=== PATIENT | male | born 1975 | race Caucasian/White ===

== ENCOUNTER → 2019-06-09 11:45 | Outpatient (CLI) | payer OTHER, SELFPAY ==
--- NOTE | ~2019-06-09 | XR_ITS ---
XR knee RT 3V 06/09/2019 12:00 INDICATION: Right knee pain PROCEDURE: 4 views right knee COMPARISON: No prior studies for comparison. FINDINGS: Fracture, dislocation or subluxation is not identified. No significant joint effusion. The soft tissues appear within normal limits. No foreign bodies are identified. IMPRESSION: 1: NO ACUTE BONE OR JOINT ABNORMALITY IDENTIFIED. Reviewed, dictated and finalized at location A. ICAL SUPERVISOR
== END ==
PROVIDERS: PCP Family Medicine; Visit Provider Family Medicine
DX: M25.561 Pain in right knee (principal)
CPT/HCPCS: 73562

== ENCOUNTER 2019-08-21 06:31 | Outpatient (CLI) | payer OTHER, SELFPAY ==
--- NOTE | ~2019-08-21 | MR_ITS ---
EXAMINATION: MR ankle RT wo con DATE: 08/21/2019 07:51 INDICATION: Right Achilles tendinitis with heel pain. TECHNIQUE: Magnetic resonance imaging (MRI) of the right ankle was performed without intravenous cont rast. Sequences included sagittal, coronal, and axial proton-density weighted fast spin echo without and with fat saturation. COMPARISON: None. FINDINGS: Evaluation mildly limited by motion blurring on multiple sequences despite repetition. Medial ankle ligaments: Deep and superficial deltoid ligaments as well as the spring ligament are normal. Lateral ankle ligaments: The anterior and posterior inferior tibiofibular ligaments are normal. The anterior talofibular, calc aneofibular and posterior talofibular ligaments are normal. Tendons: Achilles tendon is normal. Mild tendinopathy and longitudinal split tearing of the peroneus longus an d brevis tendons. The tibialis anterior and extensor hallucis longus and extensor digitorum longus te ndons are normal. The tibialis posterior, flexor digitorum longus and flexor hallucis longus tendons are normal. Plantar fascia: Thickening and increased signal at the proximal aspect of the medial compartment of the plantar apone urosis likely representing scarring at the site of a prior fascial release with additional scarring i n the more superficial plantar fat pad. No significant surrounding soft tissue edema to suggest acute plantar fasciitis. Bones/other: Bone alignment is normal. Normal marrow signal. No fracture or pathologic marrow replacing process. M ild osteoarthritis at a few of the tarsal metatarsal joints. Fluid: Physiologic amount of fluid in the joint spaces. No tenosynovitis, bursitis or other abnormal fluid c ollections. IMPRESSION: 1. Postoperative change of prior fascial release of the medial compartment of the plantar aponeurosis . 2. Mild tendinopathy and longitudinal split tearing of the peroneus longus and brevis tendons. Achill es tendon is normal. Reviewed, dictated and finalized at location A. IMPRESSION: 1. Postoperative change of prior fascial release of the medial compartment of t he plantar aponeurosis. 2. Mild tendinopathy and longitudinal split tearing of the peroneus longus and brevis tendons. Achilles tendon is normal.
== END 2019-08-21 06:32 | disposition home or self-care (01) ==
PROVIDERS: PCP Family Medicine; Visit Provider Podiatrist Foot & Ankle Surgery
DX: M76.61 Achilles tendinitis, right leg (principal)
CPT/HCPCS: 73721

== ENCOUNTER 2019-08-27 09:14 | Outpatient (CLI) | payer OTHER, SELFPAY ==
--- NOTE | 2019-08-27 11:00 | NEURO_ITS ---
Patient Number: [id number] Impression: # Complains of feet pain and numbness around the heel. # Normal nerve conduction study, with left posterior tibial nerve response less compared to the right. # Normal bilateral needle/EMG exam. # Clinical correlation recommended. Nerve Conduction Studies Anti Sensory Summary Table Stim Site NR Peak (ms) P-T Amp (?V) Site1 Site2 Delta-P (ms) Dist (cm) Mark (m/s) Left Sup Fibular Anti Sensory (Ant Lat Mall) 14 cm 3.2 7.6 14 cm Ant Lat Mall 3.2 16.0 50 Right Sup Fibular Anti Sensory (Ant Lat Mall) 14 cm 3.1 18.2 14 cm Ant Lat Mall 3.1 16.0 52 Left Sural Anti Sensory (Lat Mall) Calf 3.8 9.8 Calf Lat Mall 3.8 16.0 42 Right Sural Anti Sensory (Lat Mall) Calf 3.5 12.1 Calf Lat Mall 3.5 16.0 46 Motor Summary Table Stim Site NR Onset (ms) O-P Amp (mV) Site1 Site2 Delta-0 (ms) Dist (cm) Mark (m/s) Left Peroneal Motor (Vastus Med) Ankle 4.6 2.7 Popit Ankle 8.0 40.0 50 Popit 12.6 2.0 Right Peroneal Motor (Vastus Med) Ankle 4.5 2.8 Popit Ankle 7.5 39.0 52 Popit 12.0 2.7 Left Tibial Motor (Abd Atkinson Brev) Ankle 4.3 0.6 Knee Ankle 8.7 41.0 47 Knee 13.0 0.3 Right Tibial Motor (Abd Atkinson Brev) Ankle 4.8 2.0 Knee Ankle 9.0 43.0 48 Knee 13.8 1.6 F Wave Studies NR F-Lat (ms) L-R F-Lat (ms) Left Peroneal (Mrkrs) (EDB) 49.92 0.97 Right Peroneal (Mrkrs) (EDB) 48.94 0.97 Left Tibial (Mrkrs) (Abd Hallucis) 49.77 0.00 Right Tibial (Mrkrs) (Abd Hallucis) 49.77 0.00 EMG Side Muscle Nerve Root Ins Act Fibs Amp Dur Recrt Comment Right AntTibialis Dp Br Fibular L4-5 Nml Nml Nml Nml Nml Right Gastroc Tibial S1-2 Nml Nml Nml Nml Nml Right Fibularis Long Sup Br Fibular L5-S1 Nml Nml Nml Nml Nml Right Flex Dig Long Tibial L5-S2 Nml Nml Nml Nml Nml Right Ext Dig Brev Dp Br Fibular L5, S1 Nml Nml Nml Nml Nml Left AntTibialis Dp Br Fibular L4-5 Nml Nml Nml Nml Nml Left Gastroc Tibial S1-2 Nml Nml Nml Nml Nml Left Fibularis Long Sup Br Fibular L5-S1 Nml Nml Nml Nml Nml Left Flex Dig Long Tibial L5-S2 Nml Nml Nml Nml Nml Left Ext Dig Brev Dp Br Fibular L5, S1 Nml Nml Nml Nml Nml MTDD
== END 2019-08-27 09:15 | disposition home or self-care (01) ==
PROVIDERS: PCP Family Medicine; Visit Provider Podiatrist Foot & Ankle Surgery
DX: G57.53 Tarsal tunnel syndrome, bilateral lower limbs (principal)
CPT/HCPCS: 95886; 95910

== ENCOUNTER 2019-09-06 12:25 | Outpatient (CLI) | payer OTHER, SELFPAY ==
--- NOTE | ~2019-09-06 | XR_ITS ---
EXAMINATION:XR_CERV2-3V_CR DATE: 09/06/2019 12:40 INDICATION: Right-sided neck pain TECHNIQUE: AP, lateral, lateral swimmers and odontoid views of the cervical spine are provided. COMPARISON: 06/04/2017 FINDINGS: There is straightening of the normal cervical lordosis. The odontoid is intact. No fracture is identified. Vertebral body heights and disk spaces are normal. There is mild uncovertebral joint osteoarthritis at C5-6. Prevertebral soft tissues are normal. IMPRESSION: 1. Mild cervical spondylosis without acute findings or significant interval change. Reviewed, dictated and finalized at location B. IMPRESSION: 1. Mild cervical spondylosis without acute findings or significant interval [facility].
--- NOTE | ~2019-09-06 | CT_ITS ---
EXAMINATION: CT brain wo con DATE: 09/06/2019 13:13 INDICATION: Headache. TECHNIQUE: Computed tomography (CT) of the head was performed without intravenous contrast. The mA wa s adjusted according to patient size. Iterative reconstruction technique was employed. The dose-lengt h product was 681.00 mGy-cm. COMPARISON: None FINDINGS: There is a small old infarct in right cerebellum. There is no intracranial hemorrhage, acut e infarction, or abnormal intracranial mass lesion. The ventricles are normal in size. There is mild mucosal thickening in the ethmoid sinuses. The orbits are normal. The mastoid air cells are normal. IMPRESSION: 1. Small old infarct in right cerebellum. Reviewed, dictated and finalized at location A.
== END 2019-09-06 12:26 | disposition home or self-care (01) ==
LOC: ANHIMG 12:26
PROVIDERS: PCP Family Medicine; Visit Provider Family Medicine
DX: M54.2 Cervicalgia (principal); R51 Headache; M47.812 Spondylosis without myelopathy or radiculopathy, cervical region; Z86.73 Personal history of transient ischemic attack (TIA), and cerebral infarction without residual deficits
CPT/HCPCS: 70450; 72040

== ENCOUNTER 2019-09-11 07:21 | Outpatient (CLI) | payer OTHER, SELFPAY ==
--- NOTE | ~2019-09-11 | MR_ITS ---
EXAMINATION: MR brain/brain stem wo con DATE: 09/11/2019 08:32 INDICATION: Headache. TECHNIQUE: Magnetic resonance imaging (MRI) of the brain and brainstem was performed without intraven ous contrast. Sequences included sagittal and axial T1-weighted FSE, axial diffusion-weighted FS EPI, axial T2*-weighted GRE, axial T2-weighted FLAIR Propeller, and axial T2-weighted Propeller. Apparent diffusion coefficient (ADC) maps were created. COMPARISON: Head CT 09/06/2019 FINDINGS: There is a small old infarct in the right cerebellum. There are percent areas of nonspecifi c increased T2-weighted signal intensity in the cerebral white matter, which is within normal limits for the patient's age. There is no intracranial hemorrhage, acute infarction, or abnormal intracrania l mass lesion. The ventricles are normal in size. There is a mucous retention cyst in left maxillary sinus. The mastoid air cells are normal. The orbits are normal. IMPRESSION: 1. Small old infarct in right cerebellum. Reviewed, dictated and finalized at location A.
--- NOTE | ~2019-09-11 | US_ITS ---
EXAMINATION: US carotid duplex BI DATE: 09/11/2019 09:51 INDICATION: Right cerebellar infarct. TECHNIQUE: Grayscale, color Doppler, and pulsed Doppler images of the cervical carotid arteries were obtained. The degree of vessel stenosis is placed in one of the following categories: normal, <50%, 5 0-69%, >=70% but less than near-occlusion, near-occlusion, or total occlusion. Note that percent sten osis relative to normal distal artery lumen diameter is indirectly measured from velocity measurement s as described by Anthony, et al. Radiology 2003; 229:340-346. COMPARISON: None. FINDINGS: RIGHT: The right common carotid artery (CCA) peak systolic velocity (PSV) is 100 cm/s. The right internal ca rotid artery (ICA) PSV is 82 cm/s. The right ICA end-diastolic velocity (EDV) is 21 cm/s. The right I CA/CCA PSV ratio is 0.8. Grayscale and color Doppler images yield an estimate of <50% diameter reduct ion from plaque in the ICA. There is antegrade flow in the right vertebral artery. LEFT: The left CCA PSV is 100 cm/s. The left ICA PSV is 71 cm/s. The left ICA EDV is 30 cm/s. The left ICA/ CCA PSV ratio is 0.7. Grayscale and color Doppler images yield an estimate of <50% diameter reduction from plaque in the ICA. There is antegrade flow in the left vertebral artery. IMPRESSION: 1. <50% stenosis in the right internal carotid artery. 2. <50% stenosis in the left internal carotid artery. Reviewed, dictated and finalized at location A.
--- NOTE | ~2019-09-11 | MR_ITS ---
EXAMINATION: MRA brain wo con DATE: 09/11/2019 08:32 INDICATION: Headache. TECHNIQUE: Magnetic resonance angiography (MRA) of the brain was performed without intravenous contra st with T1-weighted SPGR by the 3D [id number] technique. Maximum intensity projection 3D-reconstr uctions were obtained. COMPARISON: Brain MRI 09/11/2019 FINDINGS: Right vertebral artery is dominant. There is no significant stenosis of basilar artery or the posteri or cerebral arteries. There is no significant stenosis of the intracranial internal carotid arteries or anterior or middle cerebral arteries. Anterior communicating artery is normal. The posterior commu nicating arteries are normal. There is no aneurysm. There is a small old infarct in right cerebellum. IMPRESSION: 1. No aneurysm or significant intracranial arterial stenosis. 2. Small old infarct in right cerebellum. Reviewed, dictated and finalized at location A.
--- NOTE | 2019-09-11 08:37 | ECHO_ITS ---
Patient Info Name: Rayo Hill Age: 44 years : 1975 Gender: Male Ht: 68 in Wt: 185 lbs BSA: 2.03 m2 HR: 77 bpm BP: 110 / 87 mmHg Heart Rhythm: Sinus Rhythm Exam Date: 09/11/2019 8:46 AM Exam Location: [facility] Patient Status: Outpatient Admit Date: 09/11/2019 Staff Ordering Physician: Leandra Vallejo DO Inventory Planner: Zaida Leyva RDCS Attending Provider: Leandra Vallejo DO Referring Physician: Genevieve DANIEL; Exam Type: CA echo doppler color flow Study Info Indications - ATRIAL TACHYCARDIA Complete two-dimensional, color flow and Doppler transthoracic echocardiogram is performed. Summary 1. Left ventricular chamber dimension is normal. 2. Left ventricular systolic function is normal, estimated at 60-65%. 3. The left ventricular diastolic function is normal. 4. Tissue doppler is not performed. 5. Left atrial chamber dimension is mildly enlarged. 6. There is mild mitral valve regurgitation. 7. There is mild tricuspid valve regurgitation. 8. No pulmonary hypertension, estimated pulmonary arterial systolic pressure is 22 mmHg. 9. There is trace pulmonic regurgitation. Left Ventricle Tissue doppler is not performed. Left ventricular chamber dimension is normal. Left ventricular systolic function is normal, estimated at 60-65%. The left ventricular diastolic function is normal. Right Ventricle Right ventricular chamber dimension is normal. Right ventricular systolic function is normal. Left Atria Left atrial chamber dimension is mildly enlarged. Right Atria Right atrial chamber dimension is normal. Aortic Valve The aortic valve is trileaflet. There is no aortic valve stenosis. There is no aortic valve regurgitation. Pulmonic Valve There is trace pulmonic regurgitation. Mitral Valve There is no mitral valve stenosis. There is mild mitral valve regurgitation. Tricuspid Valve There is mild tricuspid valve regurgitation. No pulmonary hypertension, estimated pulmonary arterial systolic pressure is 22 mmHg. Pericardium/Pleural There is no pericardial effusion. Inferior Vena Cava Normal inferior vena cava with >50% collapse upon inspiration consistent with normal right atrial pressure, 5 mmHg. Aorta The aortic root size at the sinus of Valsalva is normal. Left Ventricular Outflow Tract Name Value Normal LVOT 2D LVOT Diameter 2.2 cm LVOT Doppler LVOT Peak Velocity 71 cm/s LVOT Peak Gradient 2 mmHg LVOT Mean Gradient 1 mmHg LVOT VTI 13 cm LVOT VTI/AV VTI Ratio 0.5 LVOT Stroke Volume 48 ml LVOT CO 9.2 l/min LVOT CI 4.6 l/min/m2 Pulmonic Valve Name Value Normal RVOT Doppler
[2019-09-11 10:29] LABS: Basophils Percent Auto 0.4 % (0.2-1.2); Eosinophils Absolute Auto 0.2 K/mm3 (0-0.3); Eosinophils Percent Auto 3.2 % (0-4.4); Hematocrit 43.8 % (42.0-52.0); Hemoglobin 14.6 g/dL (14.0-18.0); Immature Granulocyte Absolute 0.01 K/mm3 (0.00-0.031); Immature Granulocyte Percent A 0.1 % (0-0.5); Lymphocytes Absolute Auto 2.96 K/mm3 (0.9-3.2); Lymphocytes Percent Auto 41.1 % (18.3-44.2); Mean Corpuscular HGB Conc 33.3 g/dl (32-36); Mean Corpuscular Hemoglobin 28.7 pg (26-34); Mean Corpuscular Volume 86.1 fl (80-100); Mean Platelet Volume 9.9 fl (7.4-10.4); Monocytes Absolute Auto 0.7 K/mm3 (0.1-0.6); Neutrophils Absolute Auto 3.3 K/mm3 (1.3-6.7); Neutrophils Percent Auto 45.2 % (45.5-73.1); Platelet Count Result 221 k/mm3 (150-375); Red Blood Count 5.09 M/mm3 (4.6-6.20); Red Cell Distribution Width 12.8 % (11.5-14.5); White Blood Count 7.2 K/mm3 (4.5-10.0)
[2019-09-11 10:45] LABS: Alanine Aminotransferase 49 U/L (4-50); Albumin Level 4.6 g/dL (3.5-5.1); Alkaline Phosphatase 56 U/L (38-126); Aspartate Amino Transferase 40 U/L (17-59); Bilirubin,Total 0.8 mg/dL (0.2-1.3); Blood Urea Nitrogen 17 mg/dL (9-20); Calcium 9.6 mg/dL (8.4-10.2); Carbon Dioxide 34 mmol/L (22-30); Chloride 101 mmol/L (98-107); Cholesterol 191 mg/dL (0-200); Estimated Glomerular Filt Rate > 60; Glucose 102 mg/dL (75-110); HDL Direct 37 mg/dL; Potassium 4.4 mmol/L (3.4-5.0); Sodium 139 mmol/L (137-145); Triglycerides 339 mg/dL (<150)
[2019-09-11 10:56] LABS: LDL Cholesterol Direct 112 mg/dL
== END 2019-09-11 07:22 | disposition home or self-care (01) ==
PROVIDERS: PCP Family Medicine; Visit Provider Family Medicine
DX: R90.89 Other abnormal findings on diagnostic imaging of central nervous system (principal); Z86.79 Personal history of other diseases of the circulatory system; R51 Headache; Z13.0 Encounter for screening for diseases of the blood and blood-forming organs and certain disorders involving the immune mechanism; Z13.1 Encounter for screening for diabetes mellitus; Z13.220 Encounter for screening for lipoid disorders; I65.23 Occlusion and stenosis of bilateral carotid arteries; R93.0 Abnormal findings on diagnostic imaging of skull and head, not elsewhere classified; I34.0 Nonrheumatic mitral (valve) insufficiency; I36.1 Nonrheumatic tricuspid (valve) insufficiency
CPT/HCPCS: 36415; 70544; 70551; 80053; 80061; 85025; 93306; 93880

== ENCOUNTER 2019-11-14 08:26 | Outpatient (CLI) | payer OTHER, SELFPAY ==
--- NOTE | ~2019-11-14 | CT_ITS ---
EXAMINATION: CTA brain carotid DATE: 11/14/2019 09:38 INDICATION: Headache. TECHNIQUE: Computed tomographic angiography (CTA) of the head was performed without and with 100 mL O [id number] intravenous contrast. CTA of the neck was performed with intravenous contrast. Automated exposure control and iterative reconstruction technique were employed. The dose-length product was 1 823.93 mGy-cm. Maximum intensity projection and volume rendered 3D-reconstructions were created by rashmi recinos technologist on a separate workstation. COMPARISON: Head CT 09/06/2019, brain MRI 09/11/2019 FINDINGS: HEAD CTA: There is a small old infarct in the right cerebellum. There is no intracranial hemorrhage, acute infarction, or abnormal intracranial mass lesion. The ventricles are normal in size. The parana hugh sinuses are clear. The orbits are normal. The mastoid air cells are normal. Right vertebral arter y is dominant. There is no significant stenosis of basilar artery or the posterior cerebral arteries. There is no significant stenosis of the intracranial internal carotid arteries or anterior or middle cerebral arteries. Anterior communicating artery is normal. The posterior communicating arteries are normal. There is no aneurysm. NECK CTA: There are no pathologically enlarged lymph nodes. There is no visible plaque in the proxima l internal carotid arteries. There is 0% stenosis of the proximal right internal carotid artery rela tive to normal distal artery lumen diameter (NASCET criteria). There is 0% stenosis of the proximal l eft internal carotid artery relative to normal distal artery lumen diameter. There is no significant stenosis of the vertebral arteries. There is mild cervical spondylosis. IMPRESSION: 1. Small old infarct in right cerebellum. 2. No aneurysm or significant intracranial arterial stenosis. 3. Normal neck arteries. Reviewed, dictated and finalized at location A.
== END 2019-11-14 08:27 | disposition home or self-care (01) ==
PROVIDERS: PCP Family Medicine; Visit Provider Psychiatry & Neurology Neurology
DX: R51 Headache (principal)
CPT/HCPCS: 70496; 70498; Q9967

== ENCOUNTER 2020-04-09 15:22 | Outpatient (CLI) | payer OTHER, SELFPAY ==
[2020-04-09 15:50] LABS: Basophils Percent Auto 0.4 % (0.2-1.2); Eosinophils Absolute Auto 0.2 K/mm3 (0-0.3); Eosinophils Percent Auto 2.7 % (0-4.4); Hematocrit 43.4 % (42.0-52.0); Immature Granulocyte Absolute 0.01 K/mm3 (0.00-0.031); Immature Granulocyte Percent A 0.1 % (0-0.5); Lymphocytes Percent Auto 31.8 % (18.3-44.2); Mean Corpuscular HGB Conc 34.6 g/dl (32-36); Mean Corpuscular Hemoglobin 29.8 pg (26-34); Mean Corpuscular Volume 86.1 fl (80-100); Mean Platelet Volume 9.6 fl (7.4-10.4); Monocytes Absolute Auto 0.8 K/mm3 (0.1-0.6); Monocytes Percent Auto 11.4 % (2.6-8.5); Neutrophils Absolute Auto 3.7 K/mm3 (1.3-6.7); Neutrophils Percent Auto 53.6 % (45.5-73.1); Platelet Count Result 216 k/mm3 (150-375); Red Blood Count 5.04 M/mm3 (4.6-6.20); Red Cell Distribution Width 12.9 % (11.5-14.5); White Blood Count 6.9 K/mm3 (4.5-10.0)
[2020-04-09 16:03] LABS: Rheumatoid Factor < 8.6 IU/ML (<12)
[2020-04-09 16:04] LABS: CRP < 0.5 mg/dL (<1.0)
[2020-04-09 17:13] LABS: Erythrocyte Sedimentation Rate 7 mm/hr (0-20)
[2020-04-13 10:55] LABS: Anti Cyclic Citrullinated Pept <16 Units (<20)
== END 2020-04-09 15:23 | disposition home or self-care (01) ==
PROVIDERS: PCP Family Medicine
DX: M05.89 Other rheumatoid arthritis with rheumatoid factor of multiple sites (principal)
CPT/HCPCS: 36415; 85025; 85652; 86038; 86140; 86200; 86430

== ENCOUNTER 2020-05-04 08:16 | Outpatient (CLI) | payer OTHER, SELFPAY ==
[2020-05-04 09:00] LABS: Alanine Aminotransferase 48 U/L (4-50); Albumin Level 4.1 g/dL (3.5-5.1); Alkaline Phosphatase 52 U/L (38-126); Anion Gap 3 mmol/L (8-16); Aspartate Amino Transferase 37 U/L (17-59); Bilirubin,Total 0.6 mg/dL (0.2-1.3); Blood Urea Nitrogen 14 mg/dL (9-20); Calcium 9.4 mg/dL (8.4-10.2); Carbon Dioxide 35 mmol/L (22-30); Chloride 103 mmol/L (98-107); Cholesterol 184 mg/dL (0-200); Estimated Glomerular Filt Rate > 60; Glucose 107 mg/dL (75-110); HDL Direct 44 mg/dL; Potassium 4.5 mmol/L (3.4-5.0); Sodium 141 mmol/L (137-145); Triglycerides 185 mg/dL (<150)
[2020-05-04 09:12] LABS: LDL Cholesterol Direct 117 mg/dL
[2020-05-04 09:39] LABS: Hemoglobin A1C 4.9 % (<5.7)
[2020-05-04 10:06] LABS: Folic Acid 13.8 ng/mL (2.76->20)
[2020-05-04 13:32] LABS: Rapid Plasma Reagin Non-Reactive (NonReactive)
[2020-05-07 16:25] LABS: Vitamin B6 10.7 ng/mL (2.1-21.7)
== END 2020-05-04 08:17 | disposition home or self-care (01) ==
PROVIDERS: PCP Family Medicine; Visit Provider Family Medicine
DX: R73.9 Hyperglycemia, unspecified (principal); G62.9 Polyneuropathy, unspecified; E78.5 Hyperlipidemia, unspecified
CPT/HCPCS: 36415; 80053; 80061; 82607; 82746; 83036; 84207; 84443; 86592

== ENCOUNTER 2021-11-01 14:30 | Outpatient (CLI) | payer OTHER, SELFPAY ==
--- NOTE | ~2021-11-01 | US_ITS ---
US art doppler w press LE BI INDICATION: Right foot pain TECHNIQUE: Segmental pressures and plethysmographic and Doppler waveforms of the brachial and lower e xtremity arteries were obtained. COMPARISON: None. FINDINGS: Right and left brachial artery pressures of 109 mm Hg and 1:15 mm Hg, respectively, are concordant (n ormal difference <= 30 mmHg). The right ankle-brachial index (LACEY) is 1.21 (normal >= 0.9-1.0). The right great toe-brachial index (TBI) is 0.94 (normal >= 0.60). The left LACEY is 1.14. The left TBI is 1.09. IMPRESSION: 1. Normal bilateral ankle and toe brachial indices. Reviewed, dictated and finalized at location B.
== END 2021-11-01 14:31 | disposition home or self-care (01) ==
LOC: ANHIMG 14:33
PROVIDERS: PCP Family Medicine; Visit Provider Family Medicine
DX: M79.671 Pain in right foot (principal); M79.672 Pain in left foot; L65.9 Nonscarring hair loss, unspecified
CPT/HCPCS: 93923

== ENCOUNTER 2022-07-03 08:37 | Emergency (ER) | payer OTHER, SELFPAY ==
[2022-07-03 08:50] VITALS: BP 115/91; PULSE 100; RESP 18; TEMP 36.7; O2SAT 100
[2022-07-03 08:51] VITALS: BP 115/91; PULSE 100; RESP 18; TEMP 36.7; O2SAT 100
--- NOTE | 2022-07-03 08:53 | ED.GENADULT ---
HPI - General Adult General Chief complaint: Skin/Abscess/Foreign Body Stated complaint: rash Time Seen by Provider: 07/03/22 08:53 Source: patient Mode of arrival: ambulatory Limitations: no limitations History of Present Illness HPI narrative: 46-year-old male patient presents to the [facility] with complaints of a rash to thighs, general area and bilateral armpits that started about 2 days ago. Patient states he called his primary doctor yesterday and tried to get in but they were not able to get him in to be seen yesterday and advised him to be seen in the urgent care. Patient denies putting anything on the rash prior advice from his doctor. Patient denies any new detergents, soaps or lotions. Patient did have COVID that he got over about a week ago. Related Data Allergies Allergy/AdvReac Type Severity Reaction Status Date / Time zolpidem [From Ambien] AdvReac Intermediate sleep Verified 07/03/22 08:51 walking IV Contrast AdvReac Unknown Back Pain Uncoded 07/03/22 08:51 Review of Systems Review of Systems: CONSTITUTIONAL: Denies fever, chills, or sweats. EYES: Denies visual changes, redness, or discharge. ENT: Denies rhinorrhea, congestion, sore throat, or otalgia. CARDIOVASCULAR: Denies chest pain, palpitations, or edema. RESPIRATORY: Denies cough or dyspnea. GASTROINTESTINAL: Denies abdominal pain, nausea, vomiting, or diarrhea. GENITOURINARY: Denies dysuria or hematuria. SKIN: Positive rash and itching to bilateral thighs, general area and bilateral armpits. MUSCULOSKELETAL: Denies back pain, joint pain, or myalgia. NEUROLOGIC: Denies headache, numbness, or weakness. PSYCHIATRIC: Denies anxiety or depression. [facility] Past Medical History Medical History COVID-19 (06/22/22) History of atrial tachycardia Plantar fasciitis of right foot Stroke Surgical History Surgical History H/O elbow surgery H/O spinal fusion History of appendectomy Family History Family History Grandparent Family history of lung cancer Mother Family history of malignant neoplasm of kidney Father Skin cancer Grandparent Cancer Social History Social History Smoking status: Never smoker Alcohol intake: current Drinks per week: 1 Substance use: never Substance use type: does not use Lack of Transportation: No Lack of Food: Never True Current Housing: I Have Housing Concerned About Future Housing: No Difficulty Paying Gas/Electric Bills: No Difficulty Paying for Meds: No Currently Unemployed: No Education: Master's Degree or Higher Difficulty w/ Childcare or Family Care: No Living arrangements: with family Occupation/Education: occupation Gender identity (if verbalized by the patient): Male Spiritual care concerns: No Agree to blood products: Yes Comments At the time of my signature I agree with nursing past medical history, surgical, social, and family history. There is no relevant family history pertinent to the presenting complaint. Exam Narrative: GENERAL: Well-appearing, well-nourished, and in no acute distress. HEAD: Normocephalic, atraumatic. EYES: PERRLA and EOMI. ENT: Nares clear, no rhinorrhea or epistaxis. Mucous membranes moist. NECK: Supple. No lymphadenopathy CHEST: Clear to auscultation. No respiratory distress. HEART: Regular rate and rhythm. No murmur heard. Normal peripheral pulses. ABDOMEN: Soft, nontender, nondistended, normal active bowel sounds. EXTREMITIES: Normal range of motion. No edema. SKIN: Warm, dry, no rash. patient has erythemic round papular rash that is localized to the back of the bilateral thighs, inner thighs and to the pannus area above the genitals. Patient has similar rash noted under bilateral armpits muscle swelling noted of th
== END 2022-07-03 09:06 | disposition home or self-care (01) ==
PROVIDERS: Emergency Provider Nurse Practitioner Family; PCP Family Medicine
DX: L25.9 Unspecified contact dermatitis, unspecified cause (principal); Z86.16 Personal history of COVID-19; Z86.73 Personal history of transient ischemic attack (TIA), and cerebral infarction without residual deficits
CPT/HCPCS: 99213; G0463

== ENCOUNTER 2022-07-23 11:41 | Emergency (ER) | payer OTHER, SELFPAY ==
[2022-07-23 11:53] VITALS: BP 143/83; PULSE 112; RESP 18; TEMP 36.3; O2SAT 97
--- NOTE | 2022-07-23 12:32 | ED.SKABFB ---
HPI - Skin/Abscess/Foreign Bdy General Chief complaint: Skin/Abscess/Foreign Body Stated complaint: Rash Time Seen by Provider: 07/23/22 12:19 Source: patient Mode of arrival: ambulatory Limitations: no limitations History of Present Illness HPI narrative: Patient presents today complaining of a mildly pruritic rash that has been present for over 2 weeks. Rash is present in the bilateral axilla, bilateral antecubital fossas, wheeze line extending to the bilateral upper legs. Patient was seen 2 weeks ago at [facility] and prescribed 15 day tapering dose of prednisone. States 5 days after starting the prednisone the rash resolved. He finished the prednisone and the rash returned 2 to 3 days after the last dose. States the rash itches rarely. Has taken a couple of doses Zyrtec without relief. Denies shortness of breath or difficulty swallowing. Denies any recent illness, recent new medications or supplements, recent new food or drink,new household products. Related Data Allergies Allergy/AdvReac Type Severity Reaction Status Date / Time zolpidem [From Ambien] AdvReac Intermediate sleep Verified 07/23/22 11:44 walking IV Contrast AdvReac Intermediate Back Pain Uncoded 07/23/22 11:44 Review of Systems Review of Systems: CONSTITUTIONAL: Denies body aches, fever, chills, or sweats. EYES: Denies visual changes, redness, or discharge. ENT: Denies rhinorrhea, congestion, sore throat, or otalgia. CARDIOVASCULAR: Denies chest pain, palpitations, or edema. RESPIRATORY: Denies cough or dyspnea. GASTROINTESTINAL: Denies abdominal pain, nausea, vomiting, or diarrhea. GENITOURINARY: Denies dysuria or hematuria. SKIN: + rash MUSCULOSKELETAL: Denies back pain, joint pain, or myalgia. NEUROLOGIC: Denies headache, numbness, tingling, or weakness. PSYCH: Denies depression or anxiety. [facility] Past Medical History Medical History COVID-19 (06/22/22) History of atrial tachycardia Plantar fasciitis of right foot Stroke Surgical History Surgical History H/O elbow surgery H/O spinal fusion History of appendectomy Family History Family History Grandparent Family history of lung cancer Mother Family history of malignant neoplasm of kidney Father Skin cancer Grandparent Cancer Social History Social History Smoking status: Never smoker Alcohol intake: current Drinks per week: 1 Substance use: never Substance use type: does not use Lack of Transportation: No Lack of Food: Never True Current Housing: I Have Housing Concerned About Future Housing: No Difficulty Paying Gas/Electric Bills: No Difficulty Paying for Meds: No Currently Unemployed: No Education: Master's Degree or Higher Difficulty w/ Childcare or Family Care: No Living arrangements: with family Occupation/Education: occupation Gender identity (if verbalized by the patient): Male Spiritual care concerns: No Agree to blood products: Yes Comments At time of signature, I have reviewed and agree with nursing past medical, surgical, social and family history unless otherwise noted. Please see nursing chart for further information. There is no relevant family history pertinent to the presenting complaint Exam Narrative: GENERAL: Well-appearing, well-nourished, and in no acute distress. HEAD: Normocephalic, atraumatic. EYES: EOMI. No redness or drainage. Conjunctivae normal. ENT: Mucous membranes pink and moist. NECK: Normal AROM. CHEST: No respiratory distress. EXTREMITIES: Normal range of motion. No edema. SKIN: Warm, dry. Capillary refill normal. Normal skin turgor. Erythematous fine macular rash to the bilateral axilla in large areas, very mildly to the bilateral antecubital fossa,
== END 2022-07-23 12:34 | disposition home or self-care (01) ==
PROVIDERS: Emergency Provider Nurse Practitioner; PCP Nurse Practitioner Family
DX: L30.9 Dermatitis, unspecified (principal); Z86.16 Personal history of COVID-19; Z86.73 Personal history of transient ischemic attack (TIA), and cerebral infarction without residual deficits
CPT/HCPCS: 99211; G0463

== ENCOUNTER → 2023-12-11 09:57 | Outpatient (CLI) | payer OTHER, SELFPAY ==
--- NOTE | ~2023-12-11 | XR_ITS ---
XR elbow RT min 3V Ordering provider: Terri Starkey NP History: . M25.521 - Pain in right elbow . Comparison: None. FINDINGS: BONES: No acute fracture or dislocation. JOINT SPACES: Normal. SOFT TISSUES: Unremarkable. No definite joint effusion. IMPRESSION: No acute osseous abnormality of the right elbow. Reviewed, dictated and finalized at location A.
== END ==
LOC: EXPTROY 10:02
PROVIDERS: PCP Nurse Practitioner Family; Visit Provider Nurse Practitioner Family
DX: M25.521 Pain in right elbow (principal)
CPT/HCPCS: 73080

== ENCOUNTER 2024-01-26 00:54 | Day surgery (SDC) | payer OTHER, SELFPAY ==
[2024-01-10 15:50] VITALS: BMI 31.9
[2024-01-26 10:14] VITALS: BP 121/73; PULSE 86; RESP 14; TEMP 36.1; O2SAT 98
[2024-01-26] MEDS: LACTATED RINGERS 1,000 ML 150 ML IV CONT (10:22)
--- NOTE | 2024-01-26 11:06 | WPDANESEPPF ---
Anes - Initial Pre Proc Eval Procedure: Operation Date: 01/26/24 11:30 Proposed Procedures p Colonoscopy - Heriberto Brar MD Date/Time: 01/26/24 11:06 Surgeon: Heriberto Brar MD Pre Op Diagnosis: Hemorrhage of anus/rectum, Patient Data Age: 48 Gender: M Height: 1.73 m Weight: 95.6 kg Last Vital Signs Temp 97 F L 01/26/24 10:14 Pulse 86 01/26/24 10:14 Resp 14 01/26/24 10:14 BP 121/73 01/26/24 10:14 Pulse Ox 98 01/26/24 10:14 O2 Del Method Room Air 01/26/24 10:14 Allergies Allergy/AdvReac Type Severity Reaction Status Date / Time zolpidem [From Ambien] AdvReac Intermediate sleep Verified 01/26/24 10:12 walking IV Contrast Allergy Severe Back Pain Uncoded 01/26/24 10:12 Home Medications Medication Instructions Recorded Confirmed Type metoprolol succinate 50 mg See Rx Instructions .Route 10/16/23 01/26/24 Rx tablet,extended release 24 hr .COMPLEX #90 tabs cetirizine 10 mg tablet (Zyrtec) 10 mg PO DAILY PRN allergy 12/11/23 01/26/24 Rx symptoms #30 tabs pramipexole 0.5 mg tablet 0.5 mg PO QHS #90 tabs 12/11/23 01/26/24 Rx fexofenadine 180 mg tablet 180 mg PO DAILY PRN Allergy 01/10/24 01/26/24 History (Saritha Allergy) Symptoms diclofenac sodium 75 mg 75 mg PO BID #60 tabs 01/11/24 01/26/24 Rx tablet,delayed release Patient hx anesthesia problems: none Family hx anesthesia problems: none Results Review: All pre-operative results and documents have been reviewed as part of the pre-operative evaluation. [facility] Past Medical History Medical History Anemia Cervicalgia COVID-19 (06/22/22) Elevated BP without diagnosis of hypertension Elevated glucose History of atrial tachycardia Hx of colonic polyps Low back pain radiating to both legs Myalgia Pharyngitis Plantar fasciitis of right foot Postnasal drip Rash and nonspecific skin eruption Rectal bleeding Restless legs Right elbow pain Seasonal allergic rhinitis Tension headache Surgical History Surgical History H/O elbow surgery H/O spinal fusion History of appendectomy Family History Family History Grandparent Family history of lung cancer Mother Family history of malignant neoplasm of kidney Father Skin cancer Grandparent Cancer Social History Social History (Updated 01/11/24 @ 13:17 by Christy Simeon [facility]) Smoking packs per day: 1 Smoking cigarettes per day: 20.0 Years smoked: 7 Smoking pack-years: 7.00 Smoking status: Former smoker Tobacco type: cigarettes and smokeless tobacco Smokeless tobacco user: chewing tobacco Second hand tobacco smoke exposure: Yes Alcohol intake: current Drinks per week: 1 Substance use: never Substance use type: does not use Do You Feel Safe in your Home?: Yes Lack of Transportation: No Lack of Food: Never True Current Housing: Decline to Answer Concerned About Future Housing: Decline to Answer Difficulty Paying Gas/Electric Bills: Decline to Answer Difficulty Paying for Meds: Decline to Answer Currently Unemployed: Decline to Answer Education: Decline to Answer Difficulty w/ Childcare or Family Care: No Living arrangements: with family Occupation/Education: occupation 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
--- NOTE | 2024-01-26 11:15 | PM.HPGS ---
History of Present Illness History of Present Illness Consent: Risks, benefits, and alternatives have been discussed and questions answered. Patient agrees to proceed with procedure. Chief complaint: colon screening Narrative: Rayo Hill is a 48 year old male here for second colonoscopy, last one 6 years ago when had rectal bleeding Review of Systems Review of Systems: All systems reviewed & are unremarkable except as noted in HPI and below PMFSH Past Medical History Medical History (Updated 01/26/24 @ 11:18 by Heriberto Brar MD) Anemia Cervicalgia Colon cancer screening COVID-19 (06/22/22) Elevated BP without diagnosis of hypertension Elevated glucose History of atrial tachycardia Hx of colonic polyps Low back pain radiating to both legs Myalgia Pharyngitis Plantar fasciitis of right foot Postnasal drip Rash and nonspecific skin eruption Rectal bleeding Restless legs Right elbow pain Seasonal allergic rhinitis Tension headache Surgical History Surgical History H/O elbow surgery H/O spinal fusion History of appendectomy Family History Family History Grandparent Family history of lung cancer Mother Family history of malignant neoplasm of kidney Father Skin cancer Grandparent Cancer Social History Social History (Updated 01/11/24 @ 13:17 by Christy Simeon [facility]) Smoking packs per day: 1 Smoking cigarettes per day: 20.0 Years smoked: 7 Smoking pack-years: 7.00 Smoking status: Former smoker Tobacco type: cigarettes and smokeless tobacco Smokeless tobacco user: chewing tobacco Second hand tobacco smoke exposure: Yes Alcohol intake: current Drinks per week: 1 Substance use: never Substance use type: does not use Do You Feel Safe in your Home?: Yes Lack of Transportation: No Lack of Food: Never True Current Housing: Decline to Answer Concerned About Future Housing: Decline to Answer Difficulty Paying Gas/Electric Bills: Decline to Answer Difficulty Paying for Meds: Decline to Answer Currently Unemployed: Decline to Answer Education: Decline to Answer Difficulty w/ Childcare or Family Care: No Living arrangements: with family Occupation/Education: occupation Additional occupation/education comments: program instructor Gender identity (if verbalized by the patient): Male Spiritual care concerns: No Agree to blood products: Yes Meds Home Medications and Allergies Home Medications Medication Instructions Recorded Confirmed Type metoprolol succinate 50 mg See Rx Instructions .Route 10/16/23 01/26/24 Rx tablet,extended release 24 hr .COMPLEX #90 tabs cetirizine 10 mg tablet (Zyrtec) 10 mg PO DAILY PRN allergy 12/11/23 01/26/24 Rx symptoms #30 tabs pramipexole 0.5 mg tablet 0.5 mg PO QHS #90 tabs 12/11/23 01/26/24 Rx fexofenadine 180 mg tablet 180 mg PO DAILY PRN Allergy 01/10/24 01/26/24 History (Saritha Allergy) Symptoms diclofenac sodium 75 mg 75 mg PO BID #60 tabs 01/11/24 01/26/24 Rx tablet,delayed release Allergies Allergy/AdvReac Type Severity Reaction Status Date / Time zolpidem [From Ambien] AdvReac Intermediate sleep Verified 01/26/24 10:12 walking IV Contrast Allergy Severe Back Pain Uncoded 01/26/24 10:12 Vital Signs Vital Signs - 24 hr 01/26/24 10:14 Temperature 97 F L Pulse Rate 86 Respiratory Rate 14 Blood Pressure 121/73 Pulse Oximetry 98 Oxygen Delivery Room Air Exam Const: General: comfortable and no acute distress HENMT: Face/Nose/Sinus: Normal nares present Eyes: General: appearance normal, both eyes and all related structures Neck: Neck: no JVD Resp: Auscultation: clear to auscultation bilaterally Cardio: Rate: regular rate Rhythm: regular rhythm GI: Inspection: non-distended GI Palp: Yes Soft to palpation Skin: General skin exam: nor
[2024-01-26 11:38] VITALS: BP 101/63; PULSE 79; RESP 14; O2SAT 95
[2024-01-26 11:48] VITALS: BP 103/61; PULSE 76; RESP 17; O2SAT 95
[2024-01-26 11:55] VITALS: BP 108/79; PULSE 80; RESP 17; O2SAT 100
== END 2024-01-26 12:05 | disposition home or self-care (01) ==
PROVIDERS: PCP Nurse Practitioner Family; Visit Provider Internal Medicine Gastroenterology
PROC: 0DJD8ZZ Inspection of Lower Intestinal Tract, Via Natural or Artificial Opening Endoscopic (ICD-10-PCS; CPT 45378; principal; 2024-01-26 11:30)
DX: Z12.11 Encounter for screening for malignant neoplasm of colon (principal); D12.3 Benign neoplasm of transverse colon; Z98.1 Arthrodesis status; Z87.891 Personal history of nicotine dependence
CPT/HCPCS: 45380; 88305; J2704; J7120

== ENCOUNTER 2024-03-11 08:29 | Outpatient (CLI) | payer OTHER, SELFPAY ==
--- NOTE | ~2024-03-11 | MR_ITS ---
EXAMINATION: MR elbow RT wo con DATE: 03/11/2024 09:23 INDICATION: Right elbow pain TECHNIQUE: Magnetic resonance imaging (MRI) of the right elbow was performed without intravenous cont rast. Sequences included coronal, axial, and sagittal PD-weighted FS FSE and coronal, axial, and sagi ttal PD-weighted FSE. COMPARISON: None FINDINGS: Evaluation mildly limited by varying degrees of motion artifact most prominent on the sagittal sequen dwight. Osseous/other: Normal alignment. No fracture or pathologic marrow replacing process. There is deep chondral ulcerati on with associated subtle cortical irregularity and mild subarticular edema-like and cystlike change along a small portion of the radial head and anteromedial margin of the capitellum. Additional mild o steoarthritis with partial-thickness cartilage loss at the posterior aspect of the proximal radioulna r articulation. Cartilage along the ulnotrochlear articulation appears relatively preserved with tiny marginal osteophytes. Tendons: Triceps tendon is normal. Mild tendinopathy without tear at the distal brachialis tendon. There is mo derate tendinopathy without definitive tear at the radial insertion of the distal biceps brachii tend on. Common flexor tendon wad is normal. The common extensor tendon wad is normal. Ligaments: The medial and lateral collateral ligament complexes are normal. Cubital tunnel: Cubital tunnel is unremarkable with normal signal and caliber of the ulnar nerve. Fluid: Physiologic amount of fluid the elbow joint. IMPRESSION: 1. 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 2. Moderate tendinopathy without tear at the distal biceps brachii tendon. 3. Mild tendinopathy without tear at the distal brachialis tendon. Reviewed, dictated and finalized at location A. IMPRESSION: 1. 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 2. Moderate tendinopathy without tear at the distal biceps brachii tendon. 3. Mild tendinopathy without tear at the distal brachialis tendon.
== END 2024-03-11 08:30 | disposition home or self-care (01) ==
LOC: ANHIMG 08:32
PROVIDERS: PCP Nurse Practitioner Family; Visit Provider Orthopaedic Surgery
DX: M19.021 Primary osteoarthritis, right elbow (principal); M94.221 Chondromalacia, right elbow; M75.21 Bicipital tendinitis, right shoulder; M77.8 Other enthesopathies, not elsewhere classified
CPT/HCPCS: 73221

== ENCOUNTER → 2024-04-10 12:05 | Outpatient (CLI) | payer OTHER, SELFPAY ==
--- NOTE | ~2024-04-10 | XR_ITS ---
[id number] Ordering provider: Terri Starkey NP History: . M56.2 - Cervicalgia years, no injury, causing headaches . Comparison: None. FINDINGS: VERTEBRAL BODIES: Normal height and alignment. No visible fracture or subluxation. The dens is intact . DISK SPACES: Narrowing of the disc C5-C6. PARASPINOUS SOFT TISSUES: No prevertebral soft tissue swelling. IMPRESSION: No acute osseous abnormality cervical spine. Degenerative disc disease at the level of C5-C6. Reviewed, dictated and finalized at location A. [facility]
== END ==
LOC: EXPTROY 12:09
PROVIDERS: PCP Nurse Practitioner Family; Visit Provider Nurse Practitioner Family
DX: R51.9 Headache, unspecified (principal); M50.322 Other cervical disc degeneration at C5-C6 level
CPT/HCPCS: 72040